=== PATIENT | male | born 1940 | race Caucasian/White ===

== ENCOUNTER 2019-07-23 10:02 | Inpatient (IN) | payer MEDICARE, OTHER ==
[~2019-07-23] VITALS: Ht 170.2 cm; Wt 68.0 kg
[~2019-07-23 10:02] MED LIST: BETADINE1 EACH TOP; CYMBALTA60 MG PO; METAMUCIL0.4 GM PO; MIRALAX17 GM PO; PRILOSEC OTC20 MG PO; PROBIOTIC1 EAC1 PO; SENNA-DOCUSATE1 EAC1 PO; VITAMIN D2000 UNIT PO
[2019-07-23 10:20] VITALS: BP 112/50
[2019-07-23 11:45] VITALS: BP 112/50
[2019-07-23 16:41] LABS: URINE BILIRUBIN NEGATIVE (Negative); URINE BLOOD NEGATIVE (Negative); URINE CLARITY SL CLOUDY; URINE COLOR YELLOW; URINE GLUCOSE-RANDOM NEGATIVE (Negative); URINE KETONES NEGATIVE (Negative); URINE LEUKOCYTES-REFLEX 3+ (Negative); URINE NITRITE-REFLEX POSITIVE (Negative); URINE PROTEIN 1+ (Negative)
[2019-07-23 17:27] LABS: BACTERIA-REFLEX >30 Many /HPF (None Seen); CASTS None Seen /LPF (None Seen); CRYSTALS None Seen /LPF (None Seen); SQUAMOUS 4-10 Moderate /LPF (0-3); URINE RBC None Seen /HPF (0-2); URINE WBC-REFLEX >25 Many /HPF (0-5)
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
[2019-07-23 20:11] VITALS: BP 134/69
--- NOTE | 2019-07-23 20:15 | NUR ---
RESTING QUIETLY IN BED AND WATCHING TV. DENIES DISCOMFORT. REQUESTED THAT TYLENOL PM BE ORDERED. DOESN'T WANT TO TAKE AMBIEN. CALL LIGHT WITHIN REACH. SUPRA PUBIC CATHETER TO DEPENDENT DRAINAGE WITH CLEAR/DARK YELLOW URINE.
--- NOTE | 2019-07-24 05:34 | NUR ---
RESTED QUIETLY. TOOK EQUIVALENT TO TYLENOL PM LAST NIGHT. HOURLY ROUNDING IN PROGRESS.
[2019-07-24 07:53] VITALS: BP 176/98
[2019-07-24 08:59] LABS: HEMATOCRIT 42.3 % (42.0-52.0); HEMOGLOBIN 14.4 gm/dL (14.0-18.0); MCH 31.4 pg (26.0-34.0); MCV 92.3 fL (80.0-100.0); MPV 8.3 fl. (7.2-11.1); RBC 4.58 mil/uL (4.50-6.00); RDW-CV 12.9 % (10.5-14.5); WBC 6.6 thou/uL (4.0-11.0)
[2019-07-24 09:15] LABS: CALCIUM 8.8 mg/dL (8.5-10.1); CREATININE 1.1 mg/dL (0.6-1.3)
[2019-07-24 11:00] VITALS: BP 162/94
--- NOTE | 2019-07-24 17:33 | NUR ---
ASSUMMED CARE OF PT AT 0730, PT ALERT AND ORIENTED, FORGETFUL AT TIMES, TRANSFERS WITH ASSIST OF 1, GB CANE CUEING, AFO TO LEFT LEG, UROPSTOMY CHANGED FROM NIGHT BAG TO LEG BAG, PT DENIES PAIN, ASSISTED WITH GROOMING, AND DRESSING, REFUSED BATHING THIS SHIFT, UP IN MOTORIZED W/C MUCH OF SHIFT, SUTURES INTACT TO FOREHEAD, SLING ON LEFT ARM THRU OUT SHIFT, TAKING FOOD AND FLUIDS WELL, REFUSING METHAMINE THIS SHIFT HE STATES IT CAUSES HIM TO HAVE DIARRHEA, PHYSICIAN AWARE OF UA RESULTS AND AWAITING CULTURE RESULTS, PT STATES HE HAD BM 2 DAYS AGO, AND BECOMING CONCERNED HE HAS NOT HAD A BM TODAY, PT DID TAKE SENNA, AND ENCOURAGED TO TAKE SUPPOSITORY EARLY TOMORROW MORNING, ASSESSMENT COMPLETE, HOURLY ROUNDING COMPLETE, WILL CONTINUE TO MONITOR.
[2019-07-24 20:00] VITALS: BP 123/81
--- NOTE | 2019-07-24 20:35 | NUR ---
RESTING QUIETLY IN BED WATCHING TV. IN GOOD SPIRITS. DENIES DISCOMFORT. SUPRAPUBIC CATHETER TO DEPENDENT DRAINAGE WITH YELLOW URINE. CALL LIGHT WITHIN REACH.
--- NOTE | 2019-07-25 05:52 | NUR ---
TOOL EQUIVALENT TO TYLENOL PM LAST NIGHT AND RESTED SOUNDLY. NO COMPLAINTS VOICED. HOURLY ROUNDING IN PROGRESS.
[2019-07-25 07:57] VITALS: BP 141/88
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
--- NOTE | 2019-07-25 11:09 | NUR ---
Nutrition: Pt admitted to rehab s/p TIZ. H/o DM, HTN. Wt: 152#. Regular diet. No albumin recorded, BG 188. Consider adding CHO count to diet order. RX noted. Low risk at this time. Will follow BG, wt, labs, po intake.
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
[2019-07-25 19:30] VITALS: BP 140/70
--- NOTE | 2019-07-26 05:40 | NUR ---
PT ALERT AND ORIENTED. VSS ON RA. ASSESSMENT DOCUMENTED. MEDS GIVEN PER EMAR. SUPRAPUBIC KERR PATENT. PT SLEPT MOST OF SHIFT. PT DENIES N/V. CALL LIGHT WITHIN REACH. HOURLY ROUNDINGS MADE. WILL CONTINUE TO MONITOR.
[2019-07-26 07:30] VITALS: BP 121/79
--- NOTE | 2019-07-26 11:21 | NUR ---
SW called pt in preparation for team conference tomorrow. Pt did not answer, SW left a detailed message requesting call back with any questions or concerns to present to team on behalf of family. SW to continue to follow to assist with safe dc planning.
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
[2019-07-26 20:17] VITALS: BP 146/79
--- NOTE | 2019-07-27 01:56 | NUR ---
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
--- NOTE | 2019-07-27 05:11 | NUR ---
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
[2019-07-27 07:00] VITALS: BP 107/70
--- NOTE | 2019-07-27 15:48 | NUR ---
SW and Dr Weinstein met with pt and pt to review team conference summary and plan for pt to remain on rehab unit for another week with team to reassess pt length of stay next Thursday. Pt was wanting to leave sooner but agreed with reteam with dc on next Friday 08/03. Pt requested pt be able to have PT morning and afternoon and pt wanted pt to have less ST. Dr Weinstein explained pt needs to have some ST as well and pt said he likes ST. Pt said that pt needs to be able to walk as he did prior to pt falling; 140 ft to be able to remain in ILF with pt . SW to continue to follow to assist with safe dc planning.
--- NOTE | 2019-07-27 18:29 | NUR ---
SUTURES FROM LT FOREHEAD REMOVED WITHOUT PROBLEM WITH AREA OPEN TO AIR. PT REMAINS ALERT AND ORIENTATED.PT HAS EATEN MEALD IN DINNINGROOM TODAY.
[2019-07-27 20:18] VITALS: BP 142/70
--- NOTE | 2019-07-28 01:56 | NUR ---
ASSUMED CARE @ .AWAKE IN BED WATCHING TV W/ HOB UP.WANTS ONLY SIDERAILS X2 UP.BED ALARM ALREADY ON @ 1941.WANTS ALL LIGHTS OFF & DOOR CLOSED @ NIGHT.SUPRAPUBIC SITE CLEANSED W/ BETADINE & DRAINAGE BAG APPLIED @ 1999. 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
--- NOTE | 2019-07-28 05:13 | NUR ---
SLEPT EARLY SINCE 2056 & SLEEPING GOOD ALL NIGHT.REFUSED HS SNACK.SUPRAPUBIC OUTPUT-1375 ML @ 0500.
[2019-07-28 08:30] VITALS: BP 118/70
--- NOTE | 2019-07-28 17:08 | NUR ---
KERR BAG CHANGED TO LEG BAG EARLY THIS AM WITH SUPRAPUBIC SITE CLEANSED WITH BETADINE. PT DID HAVE INC BM THIS AFTERNOON. PT TOTAL ASSIST WITH WHIPING AND CLEANING OFF BM.PT TRANSFERRS WITH MIN ASSIST GAITBELT AND USE OF CANE FEW STEPS TO BED AND ELECTRIC W/C.PT ALERT AND ORIENTATED AND DENIES PAIN.
--- NOTE | 2019-07-28 20:05 | NUR ---
SITTING UP IN BED WATCHING TV. IN GOOD SPIRITS. SUPRAPUBIC CATHETER TO DEPENDENT DRAINAGE WITH CLEAR/YELLOW URINE. CALL LIGHT WITHIN REACH. DENIES DISCOMFORT.
[2019-07-28 20:23] VITALS: BP 154/78
[2019-07-29 02:06] LABS: HBsAG-EMPLOYEE EXPOSURE Negative (Negative)
[2019-07-29 05:16] LABS: CALCIUM 9.1 mg/dL (8.5-10.1); CREATININE 1.1 mg/dL (0.6-1.3); POTASSIUM 4.3 mmol/L (3.5-5.1)
--- NOTE | 2019-07-29 05:18 | NUR ---
RESTED SOUNDLY. NO COMPLAINTS VOICED. HOURLY ROUNDING IN PROGRESS.
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
[2019-07-29 08:00] VITALS: BP 105/65
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
[2019-07-29 20:27] VITALS: BP 120/64
--- NOTE | 2019-07-30 04:56 | NUR ---
ASSUMED CARE @ 1929-07/29-THU.AWAKE IN BED WATCHING TV.HOB UP.BED ALARM PUT ON @ 1929.WANTS SIDERAILS X2 UP ONLY.PRN TYLENOL PM 500 MG ONE TAB ORAL GIVEN @ 2005-PER PT'S REQUEST FOR SLEEP.DRAINAGE BAG APPLIED @ 2034.ON HOURLY ROUNDS. 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
--- NOTE | 2019-07-30 05:34 | NUR ---
SLEPT EARLY SINCE 2050 & SLEEPING GOOD ALL NIGHT.REFUSED HS SNACK.
[2019-07-30 08:32] VITALS: BP 120/73
[2019-07-30 19:53] VITALS: BP 167/77
--- NOTE | 2019-07-31 05:19 | NUR ---
ASSUMED CARES AT 1920. ALERT AND ORIENTED. PLEASANT. REFUSED ANY PAIN MEDS. REFUSED FOR RN TO CLEAN SUPRAPUBIC CATHETER WITH BETADINE IT WAS DONE EARLIER. LEG BAG WAS CHANGED TO KERR BAG FOR BEDTIME. DRAINING YELLOW URINE. PT SLEEPING DURING ROUNDS. CALL LIGHT IN REACH AND BED ALARM ON.
[2019-07-31 08:30] VITALS: BP 124/78
--- NOTE | 2019-07-31 18:50 | NUR ---
CONTINUES ON 1500ML FLUID RESTRICTION.
--- NOTE | 2019-07-31 18:58 | NUR ---
ALERT AND ORIENTED X4. UP WITH 1 ASSIST GAIT BELT AND CANE TO PIVOT AND TAKE A FEW STEPS. KERR CATH CHANGED TO LEG BAG. SUPRAPUBIC AREA CLEANED WITH BETADINE. URINE CLEAR YELLOW IN COLOR. DENIES NEED FOR PAIN MEDICATION. FALL PRECAUTIONS IN PLACE, BED ALARM AND CHAIR ALARM BEING USED. WILL CONTINUE TO MONITOR.
[2019-07-31 19:30] VITALS: BP 143/73
--- NOTE | 2019-08-01 06:29 | NUR ---
ASSUMED CARES AT 1930. ALERT AND ORIENTED. PLEASANT. DENIED ANY PAIN. LEG BAG CHANGED TO KERR BAG FOR OVERNIGHT. REFUSED THIS RN TO CLEANSE SUPRAPUBIC CATHETER SITE WITH BETADINE. NO ISSUES OVERNIGHT. CALL LIGHT IN REACH AND BED ALARM ON.
[2019-08-01 08:20] VITALS: BP 123/73
--- NOTE | 2019-08-01 15:36 | NUR ---
ASSESSMENT COMPLETE. PT ALERT AND ORIENTED X4. PT DENIES PAIN. PT IN ELECTRIC CHAIR DURING THE DAY. PT TAKES MEDICATIONS WITHOUT COMPLICATIONS. TOLERATING MEALS AND DENIES N/V. PT IS ON ROOM AIR, VSS. PT HAS SUPRAPUBIC CATH IN PLACE, SELF CARE. PT TRANSFERS ONE ASSIST WITH CANE AND GAIT BELT. PT HAS FAMILY AT BEDSIDE, NO OTHER CONCERNS AT THIS TIME. SEE ASSESSMENT AND VITALS FOR OTHER DETAILS. CALL LIGHT WITHIN REACH, WILL CONTINUE PLAN OF CARE
[2019-08-01 19:30] VITALS: BP 156/91
--- NOTE | 2019-08-02 05:52 | NUR ---
PATIENT SLEPT MOST OF THE NIGHT. LEG BAG WAS CHANGED TO KERR BAG OVERNIGHT. PATIENT HAD NO COMPLAINTS OF PAIN. WILL CONTINUE TO MONITOR.
[2019-08-02 07:30] VITALS: BP 107/71
--- NOTE | 2019-08-02 15:11 | NUR ---
ASSESSMENT COMPLETE. PT IS ALERT AND ORIENTED X4. LEFT ARM IN SLING. PT IN ELECTRIC WHEELCHAIR DURING THE DAY. PT EATS MEALS IN DINING ROOM. PT DENIES PAIN. TOLERATING MEALS. PT IS ON ROOM AIR, VSS. PT IS UP ONE ASSIST WITH CANE AND GAIT BELT. SUPRAPUBIC CATHETER IN PLACE. HAS NO OTHER CONCERNS AT THIS TIME. SEE ASSESSMENT AND VITALS FOR OTHER DETAILS. CALL LIGHT WITHIN REACH, WILL CONTINUE PLAN OF CARE
--- NOTE | 2019-08-02 17:11 | NUR ---
SW met with pt in preparation for team conference tomorrow and pt pending dc tomorrow as well. Pt did not have any questions or concerns and attests that pt feels ready to dc tomorrow. Pt will have [facility] and will be home with . SW discussed the concern pt presented last Thursday about pt needing to walk 140 ft to remain in apt where they have been living. Pt did not confirm or deny the fact but stated that pt was probably hoping pt would remain longer in the hospital so that pt continues to have "free time". Pt agreed that pt probably missed pt too though and that pt would be ready to dc home with . SW to continue to follow to assist with safe dc planning for tomorrow after team conference.
[2019-08-02 19:30] VITALS: BP 170/84
--- NOTE | 2019-08-02 20:20 | NUR ---
RESTING QUIETLY IN BED. DENIES DISCOMFORT. SUPRAPUBIC CATHETER TO DEPENDENT DRAINAGE WITH CLEAR/YELLOW URINE. CALL LIGHT WITHIN REACH. TOOK MEDICATIONS WHOLE WITH WATER.
--- NOTE | 2019-08-03 05:00 | NUR ---
RESTED QUIETLY. NO COMPLAINTS VOICED. HOURLY ROUNDING IN PROGRESS.
[2019-08-03 07:30] VITALS: BP 170/84
[2019-08-03 08:00] VITALS: BP 148/90
--- NOTE | 2019-08-03 14:20 | NUR ---
Team conference held today. DENISE and Dr Weinstein met with pt and reviewed team conference summary and plan for pt to dc home with today. Pt improved towards goals and team and pt felt that pt is functioning as well as pt was at prior level of function. SW discussed options for pt to continue therapies with possibility of increased strength and safety at home environment; pt declines arrangement of HH or OP services and states that pt contacting/arranging for in home assistance. SW discussed options for [facility]SC as pt had mentioned wanting BSC for home; pt said he will most likely order online. Pt to provide pt ride home to home with at [facility] apt; no follow up HH or OP per pt choice and pt already has needed DME besides BSC which pt plans to pursue on his own.
[2019-08-03 14:31] VITALS: BP 112/50
[2019-08-03 14:47] VITALS: BP 112/50
--- NOTE | 2019-08-03 16:24 | NUR ---
PT D/C'D THIS SHIFT. PT EDUCATED ON DC INSTRUCTIONS AND MEDICATIONS. PT AND VERBALIZED UNDERSTANDING TO COVERED TOPICS. NO RX PROVIDED AND NO IV TO BE REMOVED AT THIS TIME. PT DC'D WITH AND HIS MOTORIZED WHEELCHAIR AT 1330. PT AND WERE TAKEN DOWN BY FIELD TECHNICIAN. WILL SIGN OFF AT THIS TIME
== END 2019-08-03 13:30 | disposition home or self-care (01) | DRG 85 ==
LOC: M.REH 10:02
PROVIDERS: Internal Medicine; Specialist; ADMIT Physical Medicine & Rehabilitation
DX: S06.2X0A Diffuse traumatic brain injury without loss of consciousness, initial encounter (principal); G82.50 Quadriplegia, unspecified; F32.9 Major depressive disorder, single episode, unspecified; W18.39XA Other fall on same level, initial encounter; N31.9 Neuromuscular dysfunction of bladder, unspecified; F17.210 Nicotine dependence, cigarettes, uncomplicated; I10 Essential (primary) hypertension; H54.62 Unqualified visual loss, left eye, normal vision right eye; R55 Syncope and collapse; E11.9 Type 2 diabetes mellitus without complications; K59.00 Constipation, unspecified; Y93.89 Activity, other specified; Y92.89 Other specified places as the place of occurrence of the external cause; Y99.8 Other external cause status; Z88.0 Allergy status to penicillin; Z88.2 Allergy status to sulfonamides; Z79.899 Other long term (current) drug therapy; Z88.8 Allergy status to other drugs, medicaments and biological substances